=== PATIENT | female | born 1975 | race Caucasian/White ===

== ENCOUNTER 2016-10-28 04:14 | Emergency (ER) | payer BC, OTHER ==
[~2016-10-28] VITALS: Ht 170.2 cm; Wt 111.1 kg
[2016-10-28] MEDS ORDERED: NS 500 ML IV ONE (07:30)
[2016-10-28 07:33] LABS: BASO % 0.4 % (0.0-1.0); EOS # 0.2 K/mm3 (0.0-0.50); EOS % 3.4 % (0.0-3.0); LARGE UNSTAINED CELL # 0.2 K/mm3 (0.0-0.4); LARGE UNSTAINED CELL % 2.6 % (0.0-4.0); LYMPH # 1.2 K/mm3 (1.5-4.5); LYMPH % 21.7 % (24.0-44.0); MEAN CORPUSCULAR HEMOGLOBIN 30.7 pg (27.0-33.0); MEAN CORPUSCULAR HGB CONC 34.5 g/dl (32.0-36.5); MEAN CORPUSCULAR VOLUME 88.8 fl (80.0-96.0); MONO # 0.4 K/mm3 (0.0-0.8); MONO % 7.4 % (0.0-5.0); NEUTROPHILS # 3.6 K/mm3 (1.8-7.7); NEUTROPHILS % 64.5 % (36.0-66.0); PLATELET COUNT, AUTOMATED 218 k/mm3 (150-450); RED CELL DISTRIBUTION WIDTH 12.5 % (11.5-14.5); WHITE BLOOD COUNT 5.6 K/mm3 (4.0-10.0)
[2016-10-28 07:40] LABS: CONTROL LINE HCG INT CTR LINE PRESENT
[2016-10-28 07:49] LABS: ALBUMIN 3.9 GM/DL (3.2-5.2); ALBUMIN/GLOBULIN RATIO 0.91 (1.00-1.93); ALKALINE PHOSPHATASE 103 U/L (45-117); ALT/SGPT 43 U/L (12-78); ANION GAP 8 MEQ/L (8-16); AST/SGOT 17 U/L (15-37); BILIRUBIN,DIRECT 0.1 MG/DL (0.0-0.2); BILIRUBIN,TOTAL 0.4 MG/DL (0.2-1.0); BLOOD UREA NITROGEN 8 MG/DL (7-18); CALCIUM LEVEL 8.8 MG/DL (8.5-10.1); CARBON DIOXIDE LEVEL 28 MEQ/L (21-32); CHLORIDE LEVEL 104 MEQ/L (98-107); CREATININE FOR GFR 0.84 MG/DL (0.55-1.02); GLOMERULAR FILTRATION RATE > 60.0 (>58); GLUCOSE, FASTING 100 MG/DL (70-105); SODIUM LEVEL 140 MEQ/L (136-145); TOTAL PROTEIN 8.2 GM/DL (6.4-8.2)
[2016-10-28] MEDS ORDERED: ISOVUE-370 76% 100ML VIAL (Q9967) As Ordered ONE (08:17)
[2016-10-28] MEDS ORDERED: OXYCODONE/APAP 5MG/325MG(BULK) 1 TAB TAB PO ONE (09:30)
[2016-10-28 09:38] VITALS: BP 123/79
--- NOTE | 2016-10-28 09:47 | REP ---
REASON: Left upper abdominal pain. COMPARISON: 01/09/2006 from [facility]. Contrast utilized: 100 mL Isovue 370. There is a subtle asymmetric opacity in the right lung base, probable subsegmental atelectatic change. There are no pleural or pericardial effusions. The patient is status post cholecystectomy. The liver, spleen, adrenal glands, pancreas, and kidneys are within normal limits. The abdominal aorta and para-aortic regions are within normal limits. The bowel loops and their mesenteries are within normal limits. The appendix is well visualized and it is unremarkable. There is no free fluid or free air. CT PELVIS: The bowel loops and their mesenteries are within normal limits. There is no free fluid or free air. Once again, there is a cystic structure in the left adnexa completely imaged today compared to the prior CT, which was abdomen only when this cystic structure was incompletely imaged. It measures approximately 4.3 cm in diameter and has slightly higher than water Hounsfield unit readings. It is most probably of ovarian origin. Bone window technique throughout the examination show the osseous structures to be within normal limits for the patient's age and not significantly changed from the prior exam. IMPRESSION: Once again, there is a cystic structure in the left adnexa as described above. Pelvic ultrasonography should be considered for complete evaluation. Signed by Rios Hinson DO 10/28/2016 10:05 A
--- NOTE | 2016-10-28 17:59 | ECGEPIP ---
Stationary ECG Study [facility] - ED Test Date: 2016-10-28 Pat Name: SEAN MAGANA Department: Room: - Gender: F [employer]: rn : 1975 Requested By: STEPHANIE Harvey Order Number: [id number] Reading MD: Cassy Seymour Measurements Intervals [place] Rate: 86 P: 30 [place]: 143 QRS: 11 QRSD: 87 T: 7 QT: 345 QTc: 413 Interpretive Statements SINUS RHYTHM LOW QRS VOLTAGE IN PRECORDIAL LEADS NO PRIOR FOR COMPARISON Electronically Signed On 10-28-2016 17:59:35 EST by Cassy Seymour
== END 2016-10-28 09:50 | disposition home or self-care (01) ==
LOC: M ED 05:37
DX: N83.202 Unspecified ovarian cyst, left side (principal); M19.90 Unspecified osteoarthritis, unspecified site; Z88.0 Allergy status to penicillin; Z88.8 Allergy status to other drugs, medicaments and biological substances
CPT/HCPCS: 74177; 80048; 80076; 81001; 83690; 84703; 85025; 87880; 93005; 93041; 96360; 99285; Q9967

== ENCOUNTER 2021-07-12 09:44 | Inpatient (IN) | payer BC ==
[~2021-07-12] VITALS: Ht 170.2 cm; Wt 112.2 kg
[2021-07-12] MEDS: NS 1,000 ML IV SCH ×2 (03:00→15:25)
[2021-07-12] MEDS ORDERED: VERA120T67 PO (10:00)
[2021-07-12] MEDS ORDERED: FAMO20TA5 PO (10:00)
[2021-07-12] MEDS ORDERED: NS 1,000 ML IV ONE (12:15)
[2021-07-12 13:21] LABS: MEAN CORPUSCULAR HEMOGLOBIN 30.9 pg (27.0-33.0); MEAN CORPUSCULAR HGB CONC 34.3 g/dl (32.0-36.5); MEAN CORPUSCULAR VOLUME 90.2 fl (80.0-96.0); PLATELET COUNT, AUTOMATED 250 10^3/uL (150-450); RED BLOOD COUNT 3.88 10^6/uL (4.00-5.40); WHITE BLOOD COUNT 25.9 10^3/uL (4.0-10.0)
[2021-07-12 13:46] LABS: LYMPHOCYTES 1 % (16-44); MONOCYTES 3 % (0-5); NEUTROPHILS 89 % (28-66)
[2021-07-12 13:47] LABS: PLATELET ESTIMATE NORMAL (NORMAL)
[2021-07-12 13:48] LABS: BILIRUBIN,DIRECT 0.3 MG/DL (0.0-0.2); BILIRUBIN,TOTAL 0.6 MG/DL (0.2-1.0); TOTAL PROTEIN 6.8 GM/DL (6.4-8.2)
[2021-07-12 14:31] LABS: CALCIUM LEVEL 9.5 MG/DL (8.5-10.1); CREATININE FOR GFR 2.04 MG/DL (0.55-1.30); POTASSIUM SERUM 4.8 MEQ/L (3.5-5.1)
[2021-07-12] MEDS ORDERED: TIZA2CAP6 PO (14:32)
[2021-07-12] MEDS ORDERED: DULO1CAP6 PO (14:32)
[2021-07-12] MEDS ORDERED: LevoFLOXacin IV 750 MG in IV 1 EA IV ONE (14:55)
[2021-07-12] MEDS ORDERED: PROMETHAZINE INJ 25 MG/ML VIAL (J2550) IV ONE (15:00)
[2021-07-12] MEDS ORDERED: HYDROMORPHONE HCL 0.5 MG/ 0.5 ML SYRINGE (J1170 PER 1) IV ONE (15:00)
[2021-07-12] MEDS ORDERED: MORPHINE 4 MG/ML 1ML VIAL/SYRINGE (J2270) IV PRN (15:15)
[2021-07-12] MEDS ORDERED: MORPHINE 2 MG/ML 1ML VIAL (J2270) IV PRN (15:15)
[2021-07-12] MEDS ORDERED: HOME MED LIST COMPLETE! XX SCH (15:30)
[2021-07-12] MEDS ORDERED: CONRAY-60 60% 50ML VIAL (Q9961) As Ordered ONE (23:23)
[2021-07-12] MEDS ORDERED: ISOVUE-300 61% 50ML VIAL As Ordered ONE (23:39)
[2021-07-13] VITALS (9 sets, daily range): BP systolic 110–150; BP diastolic 60–97
[2021-07-13] MEDS ORDERED: GLYCOPYRROLATE INJ 0.2 MG/ML 2 ML VIAL As Ordered ONE (00:11)
[2021-07-13] MEDS ORDERED: MIDAZOLAM INJ 2MG/2ML VIAL (J2250 PER 1MG) As Ordered ONE (00:11)
[2021-07-13] MEDS ORDERED: ONDANSETRON 4MG/2ML VIAL As Ordered ONE (00:11)
[2021-07-13] MEDS ORDERED: LIDOCAINE 2% 100MG/5ML SDV (FOR ANES.) As Ordered ONE (00:11)
[2021-07-13] MEDS ORDERED: fentaNYL 100 MCG/2 ML INJECTION As Ordered ONE (00:11)
[2021-07-13] MEDS ORDERED: KETAMINE HCL 200 MG/20 ML VIAL As Ordered ONE (00:11)
[2021-07-13] MEDS ORDERED: LR 1,000 ML IV SCH ×2 (03:00→03:15)
[2021-07-13] MEDS ORDERED: oxyCODONE 5MG TAB PO PRN (03:15)
[2021-07-13] MEDS ORDERED: ONDANSETRON 4MG/2ML VIAL IV PRN (03:15)
[2021-07-13] MEDS ORDERED: fentaNYL 100 MCG/2 ML INJECTION IV PRN (03:15)
[2021-07-13 08:24] LABS: HEMATOCRIT 32.6 % (36.0-47.0); HEMOGLOBIN 10.8 g/dl (12.0-15.5); MEAN CORPUSCULAR HEMOGLOBIN 30.9 pg (27.0-33.0); MEAN CORPUSCULAR HGB CONC 33.1 g/dl (32.0-36.5); MEAN CORPUSCULAR VOLUME 93.1 fl (80.0-96.0); PLATELET COUNT, AUTOMATED 179 10^3/uL (150-450); WHITE BLOOD COUNT 15.7 10^3/uL (4.0-10.0)
[2021-07-13 08:54] LABS: CALCIUM LEVEL 8.8 MG/DL (8.5-10.1); CREATININE FOR GFR 1.41 MG/DL (0.55-1.30); GLOMERULAR FILTRATION RATE 42.9 (>58); MAGNESIUM LEVEL 1.9 MG/DL (1.8-2.4); PHOSPHORUS LEVEL 2.7 MG/DL (2.5-4.9); POTASSIUM SERUM 4.3 MEQ/L (3.5-5.1)
[2021-07-13] MEDS ORDERED: MORPHINE 2 MG/ML 1ML VIAL (J2270) IV PRN (09:25)
[2021-07-13] MEDS ORDERED: MORPHINE 4 MG/ML 1ML VIAL/SYRINGE (J2270) IV PRN (09:25)
[2021-07-13] MEDS: FAMOTIDINE 20 MG TAB PO SCH (09:59)
[2021-07-13] MEDS: DULoxetine 30MG CAPSULE (CYMBALTA) PO SCH (09:59)
[2021-07-13] MEDS: VERAPAMIL 120MG SR TAB PO SCH (10:58)
[2021-07-13] MEDS: NS 1,000 ML IV SCH (10:58)
[2021-07-13] MEDS ORDERED: PERCOCET 5MG/325MG TAB PO PRN (15:25)
[2021-07-13] MEDS: HEPARIN SOD (PORCINE) 5000UNITS/ML 1ML VIAL/SYRINGE SQ SCH (21:11)
[2021-07-14] MEDS: HEPARIN SOD (PORCINE) 5000UNITS/ML 1ML VIAL/SYRINGE SQ SCH (05:22)
[2021-07-14 06:34] VITALS: BP 141/82
[2021-07-14 07:01] LABS: HEMATOCRIT 33.4 % (36.0-47.0); HEMOGLOBIN 11.1 g/dl (12.0-15.5); MEAN CORPUSCULAR HEMOGLOBIN 30.6 pg (27.0-33.0); MEAN CORPUSCULAR HGB CONC 33.2 g/dl (32.0-36.5); PLATELET COUNT, AUTOMATED 187 10^3/uL (150-450); RED BLOOD COUNT 3.63 10^6/uL (4.00-5.40); WHITE BLOOD COUNT 14.4 10^3/uL (4.0-10.0)
[2021-07-14 07:24] LABS: CALCIUM LEVEL 8.7 MG/DL (8.5-10.1); CREATININE FOR GFR 1.06 MG/DL (0.55-1.30); GLOMERULAR FILTRATION RATE 59.7 (>58); MAGNESIUM LEVEL 1.8 MG/DL (1.8-2.4); PHOSPHORUS LEVEL 1.9 MG/DL (2.5-4.9); POTASSIUM SERUM 4.1 MEQ/L (3.5-5.1)
[2021-07-14] MEDS: DULoxetine 30MG CAPSULE (CYMBALTA) PO SCH (07:57)
[2021-07-14] MEDS: FAMOTIDINE 20 MG TAB PO SCH (07:57)
[2021-07-14 07:58] VITALS: BP 132/80
[2021-07-14] MEDS: VERAPAMIL 120MG SR TAB PO SCH (07:58)
[2021-07-14] MEDS ORDERED: K-PHOS ORIGINAL (POT.ACID PHOSPHATE) 500MG TAB PO ONE (11:00)
[2021-07-14] MEDS ORDERED: LEVO750T14 PO (11:02)
[2021-07-14] MEDS ORDERED: LevoFLOXacin 750 MG TABLET PO ONE (11:45)
[2021-07-14] MEDS ORDERED: LevoFLOXacin IV 750 MG in IV 1 EA IV SCH (18:00)
== END 2021-07-14 12:10 | disposition home or self-care (01) | DRG 463 ==
LOC: M ED 09:44 → M ED INP 15:06 → M MS5PR 07-13 00:58
PROVIDERS: ADMIT Internal Medicine; ATTEND Internal Medicine
PROC: 0T768DZ Dilation of Right Ureter with Intraluminal Device, Via Natural or Artificial Opening Endoscopic (ICD-10-PCS; principal; 2021-07-13)
PROC: 0T968ZX Drainage of Right Ureter, Via Natural or Artificial Opening Endoscopic, Diagnostic (ICD-10-PCS; 2021-07-13)
DX: N13.6 Pyonephrosis (principal); I10 Essential (primary) hypertension; K21.9 Gastro-esophageal reflux disease without esophagitis; F32.A Depression, unspecified; R00.2 Palpitations; B96.20 Unspecified Escherichia coli [E. coli] as the cause of diseases classified elsewhere; M47.9 Spondylosis, unspecified; Z79.899 Other long term (current) drug therapy; Z88.0 Allergy status to penicillin; Z88.5 Allergy status to narcotic agent; Z88.8 Allergy status to other drugs, medicaments and biological substances

== ENCOUNTER → 2021-07-30 | Outpatient (CLI) | payer BC ==
[~2021-07-30] MED LIST: DULO1CAP6 PO; FAMO20TA5 PO; LEVO750T14 PO; TIZA2CAP6 PO; VERA120T67 PO
== END ==
LOC: M LABSMTC 11:06
PROVIDERS: ATTEND Anesthesiology
DX: Z01.812 Encounter for preprocedural laboratory examination (principal); Z20.822 Contact with and (suspected) exposure to COVID-19

== ENCOUNTER 2021-08-04 10:31 | Day surgery (SDC) | payer BC ==
[~2021-08-04] VITALS: Ht 170.2 cm; Wt 109.3 kg
[~2021-08-04 10:31] MED LIST changes: +CIPROFLOXACIN 400 MG in IV 1 EA IV ONE; +LR 1,000 ML IV ONE
[2021-08-04] MEDS ORDERED: CONRAY-60 60% 50ML VIAL (Q9961) As Ordered ONE (13:05)
--- NOTE | 2021-08-04 13:21 | ROOPDOC ---
[facility] Report Of Operation Report of Operation DATE OF PROCEDURE: 08/04/21 PREPROCEDURE DIAGNOSES: [right ureteral stone]. POSTPROCEDURE DIAGNOSES: [Same]. PROCEDURE PERFORMED: [cysto, fluoro, retrograde, rig ureteroscopy, laser litho, basket stone extraction, stent change RIGHT SIDE]. SURGEON: [Flakito Miller MD PHARMACY ASSOCIATE: [None], MD ANESTHESIA: [General]. ESTIMATED BLOOD LOSS: Approximately [minimal] mL. COMPLICATIONS: [None]. REMARKS: [45-year-old white female. Developed pain on the right side. Found to have a right ureteral stone. Today surgery arranged. Informed consent was obtained. Risks were discussed such as infection, bleeding, pain, scarring, failure of surgery, need for more surgery, injury to the urinary tract, risks of anesthesia and others.]. FINDINGS: SPECIMENS REMOVED: [Stone fragment] PROCEDURE NOTE: . DESCRIPTION OF PROCEDURE: [I met with the patient in the preop area and again discussed surgery. Questions answered. She wished to proceed. Patient brought to the OR room. General anesthesia secured without difficulty. Dorsolithotomy position. Well-padded. Prepped and draped in usual sterile fashion. A timeout was performed. Surgery was done under antimicrobial coverage. Rigid cystoscopy was performed. The stent on the right was noted and pulled to the external urethral meatus after which a wire was passed through it into the kidney as seen using fluoroscopy. The stent was then removed. The wire was secured to the drapes. Rigid ureteroscopy was performed. A stone was encountered in the mid ureter. Too big for simple extraction. Laser litho tripsy was performed. A basket was used to remove the larger fragments. A fragment was saved to be sent off. Once satisfied a 6 Arabic multilength stent was placed using the Seldinger technique. With the ureteroscope in place, contrast was injected through it to obtain a retrograde pyelogram. Some hydronephrosis. Patient tolerated everything well left the room in satisfactory condition.]. TRAVIS MILLER MD Aug 04, 2021 13:21
[2021-08-04] MEDS ORDERED: HYDR-3713 PO (13:25)
[2021-08-04] MEDS ORDERED: BACT800T5 PO (13:25)
[2021-08-04] MEDS ORDERED: ONDANSETRON 4MG/2ML VIAL As Ordered ONE (13:36)
[2021-08-04] MEDS ORDERED: propofoL 200 MG/20 ML VIAL As Ordered ONE (13:36)
[2021-08-04] MEDS ORDERED: fentaNYL 100 MCG/2 ML INJECTION (J3010) As Ordered ONE (13:36)
[2021-08-04] MEDS ORDERED: dexameTHASONE 4 MG/ML 1ML VIAL (J1100 PER 1MG) As Ordered ONE (13:36)
[2021-08-04] MEDS ORDERED: LIDOCAINE 2% 100MG/5ML SDV (FOR ANES.) As Ordered ONE (13:36)
[2021-08-04] MEDS ORDERED: MIDAZOLAM INJ 2MG/2ML VIAL (J2250 PER 1MG) As Ordered ONE (13:36)
[2021-08-04] MEDS ORDERED: METOCLOPRAMIDE INJ 10MG/2ML VIAL (J2765 PER 1) As Ordered ONE (13:42)
--- NOTE | 2021-08-04 14:08 | REP ---
INDICATION: RIGHT STENT PLACEMENT. COMPARISON: 07/13/2021 TECHNIQUE: Intraoperative fluoroscopic imaging using portable technique. FINDINGS: Images demonstrate right-sided hydronephrosis with subsequent right ureteral stent placement. Total fluoroscopic time 16 seconds. IMPRESSION: Status post right ureteral stent placement. <Electronically signed by Jt Osorio > 08/04/21 [id number]
[2021-08-04] MEDS ORDERED: oxyCODONE 5MG TAB PO PRN (14:10)
[2021-08-04] MEDS ORDERED: LR 1,000 ML IV SCH ×2 (14:10→14:15)
[2021-08-04] MEDS ORDERED: fentaNYL 100 MCG/2 ML INJECTION (J3010) IV PRN (14:10)
[2021-08-04] MEDS ORDERED: ONDANSETRON 4MG/2ML VIAL IV PRN (14:10)
[2021-08-04 15:30] VITALS: BP 138/77
[2021-08-10 16:08] LABS: CA Oxalate Dihy 90 % (.); Ca Ox Monohydrate 10 % (.)
== END 2021-08-04 15:40 | disposition home or self-care (01) ==
LOC: M SDC 10:31
PROVIDERS: ATTEND Urology
DX: N20.0 Calculus of kidney (principal); I10 Essential (primary) hypertension; K21.9 Gastro-esophageal reflux disease without esophagitis; G43.909 Migraine, unspecified, not intractable, without status migrainosus; Z79.899 Other long term (current) drug therapy; F32.9 Major depressive disorder, single episode, unspecified; F12.10 Cannabis abuse, uncomplicated; Z88.0 Allergy status to penicillin; Z88.5 Allergy status to narcotic agent; Z88.8 Allergy status to other drugs, medicaments and biological substances
CPT/HCPCS: 52356; 74420; 81025; 82365; 88300; C1769; C2617; J0744; J1100; J2250; J2405; J2765; J3010; Q9961